=== PATIENT | female | born 1995 | race Caucasian/White ===

== ENCOUNTER → 2020-02-17 | Outpatient (REF) | payer MEDICAID ==
[2020-02-17 15:02] LABS: HEMATOCRIT 37.9 % (36.0-47.0); HEMOGLOBIN 13.3 g/dl (12.0-15.5); MEAN CORPUSCULAR HEMOGLOBIN 32.6 pg (27.0-33.0); MEAN CORPUSCULAR HGB CONC 35.1 g/dl (32.0-36.5); MEAN CORPUSCULAR VOLUME 92.9 fl (80.0-96.0); PLATELET COUNT, AUTOMATED 235 10^3/uL (150-450); RED BLOOD COUNT 4.08 10^6/uL (4.00-5.40); WHITE BLOOD COUNT 8.8 10^3/uL (4.0-10.0)
[2020-02-17 16:10] LABS: HEPATITIS C VIRUS ABY INDEX 0.1 INDEX (<0.8); HIV 1&2 SCREEN CENTAUR NEGATIVE (NEGATIVE)
== END ==
LOC: M PLALAB 12:44
PROVIDERS: ATTEND Advanced Practice Midwife
DX: Z34.01 Encounter for supervision of normal first pregnancy, first trimester (principal)

== ENCOUNTER → 2020-03-30 | Outpatient (CLI) | payer OTHER ==
--- NOTE | 2020-03-30 09:45 | REP ---
INDICATION: ANATOMY COMPARISON: None. TECHNIQUE: Transabdominal obstetrical ultrasound with color Doppler evaluation. FINDINGS: Examination demonstrates a single live intrauterine in cephalic presentation. motion is identified by technologist. Placenta is noted posterior/right lateral and grade 1 without evidence for placenta previa or abruption. Amniotic fluid volume is normal. Cervix measures 3.1 cm in length and appears closed.. Gestational age by LMP 17 weeks 6 days with JAISON 09/01/2020. Gestational age by current measurements 17 weeks 3 days with JAISON 09/04/2020. FHR equals 152 beats per minute. BPD: 3.9 cm seventeen weeks 5 days HC: 14.1 cm 17 weeks 3 days AC: 14.1 cm 16 weeks 6 days FL: 2.5 cm 17 weeks 4 days HL: 2.5 cm 17 weeks 4 days HC/AC: 1.27 Estimated weight 187 grams (14thpercentile). Anatomical assessment demonstrates normal structures including cranium, choroid plexus, cavum, cerebellum/posterior fossa, ventricular outflow tracts, diaphragm, stomach, cord insertion/three-vessel cord, kidneys/bladder, spine, and extremities. IMPRESSION: 1. Single live intrauterine in cephalic presentation demonstrating appropriate estimated weight. 2. Limited evaluation of the nose/lips and four-chamber heart. Follow-up and re-evaluation is recommended. <Electronically signed by Jaziel Braun > 03/30/20 [id number]
== END ==
LOC: M WHC 08:32
PROVIDERS: ATTEND Advanced Practice Midwife
DX: Z34.02 Encounter for supervision of normal first pregnancy, second trimester (principal)

== ENCOUNTER → 2020-05-29 | Outpatient (REF) | payer OTHER ==
[2020-05-29 13:42] LABS: HEMATOCRIT 33.4 % (36.0-47.0); HEMOGLOBIN 11.2 g/dl (12.0-15.5); MEAN CORPUSCULAR HGB CONC 33.5 g/dl (32.0-36.5); MEAN CORPUSCULAR VOLUME 98.5 fl (80.0-96.0); PLATELET COUNT, AUTOMATED 207 10^3/uL (150-450); RED BLOOD COUNT 3.39 10^6/uL (4.00-5.40); WHITE BLOOD COUNT 7.8 10^3/uL (4.0-10.0)
== END ==
LOC: M PLALAB 08:30
PROVIDERS: ATTEND Advanced Practice Midwife
DX: Z34.02 Encounter for supervision of normal first pregnancy, second trimester (principal)

== ENCOUNTER → 2020-06-04 | Outpatient (CLI) | payer OTHER ==
--- NOTE | 2020-06-04 11:17 | REP ---
INDICATION: F/U NOSE/LIPS, 4 CHAMBER HEART COMPARISON: 03/30/2020 TECHNIQUE: Transabdominal obstetrical ultrasound with color Doppler evaluation. FINDINGS: Examination demonstrates a single live intrauterine in cephalic presentation. motion is identified by technologist. Placenta is noted posterior and grade 1 without evidence for placenta previa or abruption. Amniotic fluid volume is normal. Cervix measures 3.1 cm in length and appears closed.. Gestational age by LMP 27 weeks 2 days with JAISON 09/01/2020. Gestational age by current measurements 27 weeks 0 days with JAISON 09/03/2020. FHR equals 156 beats per minute. Estimated weight 1022 grams (29thpercentile). Anatomical assessment demonstrates normal structures including cranium, facial features, nose/lips, stomach, kidneys/bladder and three-vessel cord. Echogenic foci within the heart again noted and may represent prominent chordae tendineae. IMPRESSION: Single live intrauterine in cephalic presentation demonstrating appropriate interval growth. Current examination demonstrates normal appearance to the nose/lips. Intracardiac echogenic foci again noted. <Electronically signed by Jaziel Braun > 06/04/20 [id number]
== END ==
LOC: M WHC 09:36
PROVIDERS: ATTEND Advanced Practice Midwife
DX: O28.3 Abnormal ultrasonic finding on antenatal screening of mother (principal); Z36.2 Encounter for other antenatal screening follow-up; Z3A.27 27 weeks gestation of pregnancy

== ENCOUNTER → 2020-08-04 | Outpatient (REF) | payer OTHER | LOC: M SFHCWAGY 13:29 | PROVIDERS: ATTEND Advanced Practice Midwife | DX: Z36.89 Encounter for other specified antenatal screening (principal); Z3A.36 36 weeks gestation of pregnancy ==

== ENCOUNTER → 2020-09-01 | Outpatient (CLI) | payer OTHER | LOC: M LABSMTC 10:08 | PROVIDERS: ATTEND Specialist | DX: Z11.52 Encounter for screening for COVID-19 (principal) ==

== ENCOUNTER 2020-09-04 11:19 | Outpatient (CLI) | payer OTHER ==
[~2020-09-04] VITALS: Ht 152.4 cm; Wt 59.0 kg
[2020-09-04 11:44] VITALS: BP 130/85
--- NOTE | 2020-09-04 12:15 | IPNPDOC ---
Text Note Date of Service The patient was seen on 09/04/20. NOTE Outpatient 25yo G1 JAISON 09/01/2020 @ 40w3. Presents with complaints of contractions since 0500. Sister in law reports they are irregular, every 2-3 minutes. Denies LOF, bleeding. Reports good movement. Cat I tracing UC mild, 2-5 minutes SVE 1/90/-2, posterior. No show on glove. Scheduled for elective IOL today. Reviewed early labor. Rec having lunch, increase her fluids, tylenol, shower and rest Enc to call with increased discomfort , regularity of UC, bleeding or lOF. Pt and VIJAY verbalize understanding. Will call for IOL later today VS,Fishbone, I+O VS, Fishbone, I+O Vital Signs Date Time Temp Pulse Resp B/P (MAP) Pulse Ox O2 Delivery O2 Flow Rate FiO2 09/04/20 11:44 97.9 70 18 130/85 (100) Milla Palm CNM September 04, 2020 12:15
[2020-09-04] MEDS ORDERED: PROMETHAZINE INJ 25 MG/ML VIAL (J2550) IV ONE (20:50)
[2020-09-04] MEDS ORDERED: BUTORPHANOL 2 MG/ML INJ (J0595) IV ONE (20:50)
[2020-09-07] MEDS ORDERED: PRENCHW PO ×2 (10:40)
== END 2020-09-04 12:18 | disposition home or self-care (01) ==
LOC: M LDO 11:19
PROVIDERS: ATTEND Advanced Practice Midwife
DX: O47.1 False labor at or after 37 completed weeks of gestation (principal); Z3A.40 40 weeks gestation of pregnancy; O48.0 Post-term pregnancy

== ENCOUNTER 2020-09-04 17:23 | Inpatient (IN) | payer OTHER ==
[~2020-09-04] VITALS: Ht 152.4 cm; Wt 59.0 kg
[2020-09-04] MEDS ORDERED: LACTATED RINGER'S 1000 ML IV STA (17:54)
[2020-09-04] MEDS ORDERED: OXYTOCIN DRIP 30 UNITS in IV 1 EA IV PRN (17:55)
[2020-09-04] MEDS ORDERED: METHYLERGONOVINE MALEATE 0.2 MG/ML VIAL (J2210) IM PRN (17:55)
[2020-09-04] MEDS ORDERED: LIDOCAINE 1% MDV 20ML VIAL INFIL PRN (17:55)
--- NOTE | 2020-09-04 18:10 | HPEPDOC ---
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 BREAST: . ABDOMEN: Gravid and non-tender to touch. FETUS: Is vertex (VTX) by sterile vaginal examination (SVE), fetus is vertex (VTX) by Jeffrey. EFW 7# HEART RATE: Regular rate and rhythm. LUNGS: Clear to auscultation (CTA). EXTREMITIES: No edema. No clonus. Deep tendon reflexes (DTRs) + 2. Pertinent Laboratoy Data Blood Type: O+ RBC Antibody Screen: Negative HIV: Negative Hepatitis B: Negative Hepatitis C: Negative Rapid Plasma Reagin: Nonreactive Rubella: Nonreactive Chlamydia/Gonorrhea: Negative Group B Streptococcus: Negative Glucose Tolerance Test: 110 Anatomy Ultrasound Ultrasound Date: Mar 30, 2020 Placenta Location: Posterior Normal Anatomy: Yes Placenta Previa: No Estimated Weight (grams): 187 (14%) Other Ultrasounds 02/17/20dating 11w2d 06/04/2020 f/u anatomy EFW 1022gm 29% Steroid Therapy Steroid Therapy: No Vaginal Examination Dilation: 3 cm (-4) Effacement: 90% Station: -1 Cervical Consistency: Soft Cervical Position: Middle Presentation: Cephalic presentation Assessment Heart Rate (FHR): 145 Variability: Moderate Accelerations: Positive Decelerations: None Tocometer Contractions: Yes Frequency: regular, every 3-7 min. Strength: palpated as mild Assessment/Plan Assessment Stephani is a 25-year-old (G)1 para (P)0-0-0-0 at 40+3 weeks by 11-week ultrasound. Presents to Labor and Delivery (L&D) with complaints of contractions. Denies LOF, bleeding. Reports good movement. Plan Admit and orient. 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 Diet: regular. Group B Streptococcus (GBS) negative Labs and intravenous (IV) per unit protocol. Counseled on Pitocin and induction of labor (IOL). Lactated Ringers (LR): Bolus 500 mL, then saline lock. Plans to labor ad armin Anticipate normal spontaneous delivery (). C-S as appropriate. Milla Palm CNM September 04, 2020 18:10
[2020-09-04 18:22] LABS: HEMATOCRIT 33.7 % (36.0-47.0); HEMOGLOBIN 11.2 g/dl (12.0-15.5); MEAN CORPUSCULAR HEMOGLOBIN 29.6 pg (27.0-33.0); MEAN CORPUSCULAR HGB CONC 33.2 g/dl (32.0-36.5); MEAN CORPUSCULAR VOLUME 88.9 fl (80.0-96.0); PLATELET COUNT, AUTOMATED 164 10^3/uL (150-450); RED BLOOD COUNT 3.79 10^6/uL (4.00-5.40); WHITE BLOOD COUNT 9.2 10^3/uL (4.0-10.0)
[2020-09-04 19:09] VITALS: BP 125/71
[2020-09-04 20:35] VITALS: BP 110/65
[2020-09-04] MEDS ORDERED: BUTORPHANOL 2 MG/ML INJ (J0595) IV ONE (20:55)
[2020-09-04] MEDS ORDERED: PROMETHAZINE INJ 25 MG/ML VIAL (J2550) IV ONE (20:55)
[2020-09-04 21:05] VITALS: BP 114/69
[2020-09-04 22:02] VITALS: BP 108/62
[2020-09-04 22:53] VITALS: BP 108/68
[2020-09-04] MEDS ORDERED: LR 1,000 ML IV SCH (23:10)
[2020-09-04] MEDS ORDERED: OXYTOCIN DRIP 30 UNITS in IV 1 EA IV SCH (23:10)
[2020-09-05] VITALS (17 sets, daily range): BP systolic 102–132; BP diastolic 52–83
[2020-09-05] MEDS ORDERED: BUTORPHANOL 2 MG/ML INJ (J0595) IV ONE (02:30)
[2020-09-05] MEDS ORDERED: IBUPROFEN 800 MG TAB PO PRN (06:20)
[2020-09-05] MEDS ORDERED: MEASLES,MUMPS,RUBELLA VACCINE INJ (MMR-II) (90707) SC SCH (06:20)
[2020-09-05] MEDS ORDERED: ACETAMINOPHEN TAB 650MG DOSE (2X325MG) PO PRN (06:20)
[2020-09-05] MEDS ORDERED: RHOGAM 300 MCG (1500 IU) INJ (J2790) IM SCH (06:20)
[2020-09-05] MEDS ORDERED: ACETAMINOPHEN 500 MG TAB PO PRN (06:20)
[2020-09-05] MEDS ORDERED: DOCUSATE SODIUM 100MG CAPSULE PO PRN (06:20)
[2020-09-05] MEDS ORDERED: METHYLERGONOVINE MALEATE 0.2 MG TAB PO PRN (06:20)
[2020-09-05] MEDS ORDERED: ANUSOL HC CREAM 30GM TOP PRN (06:20)
[2020-09-05] MEDS ORDERED: DIBUCAINE 1% OINTMENT 30GM TOP PRN (06:20)
[2020-09-05] MEDS ORDERED: MOM 30ML SUSPENSION UDC PO PRN (06:20)
--- NOTE | 2020-09-05 06:30 | DNPDOC ---
[facility] Delivery Note Delivery Note DATE OF DELIVERY: 09/05/2020 PREDELIVERY DIAGNOSIS: 40+3/7 weeks' gestation and labor. POST DELIVERY DIAGNOSIS: Delivered. PROCEDURE: Spontaneous vaginal delivery. PROVIDER: Milla Palm CNM ANESTHESIA: None ESTIMATED BLOOD LOSS: 500 mL. FINDINGS: 7 pound 4 ounce, 3280gm male , Score 9/9, no nuchal cord. DELIVERY SUMMARY: Patient is a 25-year-old 1 now para 1-0-0-1 who was admitted to labor and delivery for labor. She received pitocin augmentation of labor, utilizing physiologic coping with stadol and phenergan. Fully dilated 043 6. AROM clear fluid 0437. Viable male child delivered KORY @ 0516. Shoulders delivered with ease. Spontaneous respirations with stimulation. Transitioned on maternal abdomen. Cord doubly clamped and cut by mother under my direction once pulsations ceased. Apgars 9/9. Placenta magdaleno, intact with 3v cord @ 0523. Fundus slow to firm despite massage and IV bolus premixed pitocin solution. Misoprostol 1000mcg [place] placed with excellent control of bleeding. 2nd degree vaginal/perineal laceration and right labial extension infiltrated with lidocaine and reapproximated with 3-0 vicryl rapide. EBL 500ml. Sponge, sharp, instrument count correct. Parents are naming their son Octavio. . Milla Palm CNM September 05, 2020 06:30
[2020-09-05] MEDS: PRENATAL VITAMINS CHEWABLE TABLET PO SCH (07:58)
[2020-09-05] MEDS: IBUPROFEN 600MG TAB PO PRN ×2 (07:59→13:54)
[2020-09-06] MEDS: IBUPROFEN 600MG TAB PO PRN ×3 (03:05→17:03)
[2020-09-06 05:57] VITALS: BP 102/52
--- NOTE | 2020-09-06 08:50 | IPNPDOC ---
Progress Note Date of Service: September 06, 2020 Day#: 1 Progress Note SUBJECT: Doing well without complaints. Ambulating, voiding and pain is well-co ntrolled. Reports minimal lochia. OBJECTIVE: VITAL SIGNS: Within normal limits, afebrile. Alert and oriented times three. Abdomen: Fundus firm at U-2. Soft, NTTP. Ext: neg calf tenderness. ASSESSMENT: day #1 status post . Recovering in stable condition. PLAN: 1. Continue routine care 2. Discharge plans for tomorrow VS, I&O, 24H, Fishbone Vital Signs/I&O Vital Signs Date Time Temp Pulse Resp B/P (MAP) Pulse Ox O2 Delivery O2 Flow Rate FiO2 09/06/20 05:57 98.7 82 16 102/52 (69) 97 Room Air I&O- Last 24 Hours up to 6 AM 09/06/20 06:00 Intake Total 600 ml Output Total 550 ml Balance 50 ml VALERIE REYNA MD. September 06, 2020 08:50
[2020-09-06] MEDS: PRENATAL VITAMINS CHEWABLE TABLET PO SCH (10:02)
[2020-09-06 17:52] VITALS: BP 107/54
[2020-09-07 06:00] VITALS: BP 111/62
[2020-09-07] MEDS: IBUPROFEN 600MG TAB PO PRN (06:15)
[2020-09-07] MEDS: PRENATAL VITAMINS CHEWABLE TABLET PO SCH (08:09)
[2020-09-07] MEDS ORDERED: IBUP80TA PO (10:40)
[2020-09-07] MEDS ORDERED: PRENCHW PO (10:40)
[2020-09-07] MEDS ORDERED: ACET-683 PO (10:40)
== END 2020-09-07 12:40 | disposition home or self-care (01) | DRG 560 ==
LOC: M LDO 17:23 → M LDI 17:56 → M OBS 09-05 09:31
PROVIDERS: ADMIT Advanced Practice Midwife; ATTEND Advanced Practice Midwife
PROC: 10E0XZZ Delivery of Products of Conception, External Approach (ICD-10-PCS; principal; 2020-09-05)
PROC: 0KQM0ZZ Repair Perineum Muscle, Open Approach (ICD-10-PCS; 2020-09-05)
PROC: 10907ZC Drainage of Amniotic Fluid, Therapeutic from Products of Conception, Via Natural or Artificial Opening (ICD-10-PCS; 2020-09-05)
DX: O48.0 Post-term pregnancy (principal); O70.1 Second degree perineal laceration during delivery; Z37.0 Single live birth; Z3A.40 40 weeks gestation of pregnancy

== ENCOUNTER → 2020-12-01 | Outpatient (REF) | payer OTHER ==
[~2020-12-01] MED LIST: ACET-683 PO; IBUP80TA PO; PRENCHW PO
== END ==
LOC: M SFHCWAGY 13:14
PROVIDERS: ATTEND Advanced Practice Midwife
DX: Z12.4 Encounter for screening for malignant neoplasm of cervix (principal); R87.5 Abnormal microbiological findings in specimens from female genital organs

== ENCOUNTER 2021-10-04 11:59 | Emergency (ER) | payer OTHER ==
[~2021-10-04] VITALS: Ht 162.6 cm; Wt 47.0 kg
[2021-10-04] MEDS ORDERED: NS 1,000 ML IV ONE (15:45)
[2021-10-04 17:00] LABS: BASO # 0.1 10^3/uL (0.0-0.2); BASO % 0.6 % (0.0-1.0); EOS # 0.1 10^3/uL (0.0-0.5); EOS % 0.6 % (0.0-3.0); HEMATOCRIT 36.3 % (36.0-47.0); HEMOGLOBIN 12.5 g/dl (12.0-15.5); LYMPH # 1.5 10^3/uL (1.5-5.0); LYMPH % 15.2 % (24.0-44.0); MEAN CORPUSCULAR HEMOGLOBIN 33.2 pg (27.0-33.0); MEAN CORPUSCULAR HGB CONC 34.4 g/dl (32.0-36.5); MEAN CORPUSCULAR VOLUME 96.5 fl (80.0-96.0); MONO # 0.5 10^3/uL (0.0-0.8); NEUTROPHILS # 7.6 10^3/uL (1.5-8.5); NEUTROPHILS % 78.3 % (36.0-66.0); PLATELET COUNT, AUTOMATED 275 10^3/uL (150-450); RED BLOOD COUNT 3.76 10^6/uL (4.00-5.40); WHITE BLOOD COUNT 9.8 10^3/uL (4.0-10.0)
[2021-10-04 17:21] LABS: ALBUMIN 3.7 GM/DL (3.2-5.2); ALT/SGPT 15 U/L (12-78); BILIRUBIN,DIRECT 0.1 MG/DL (0.0-0.2); BILIRUBIN,TOTAL 0.4 MG/DL (0.2-1.0); BLOOD UREA NITROGEN 10 MG/DL (7-18); CALCIUM LEVEL 8.6 MG/DL (8.5-10.1); CARBON DIOXIDE LEVEL 23 MEQ/L (21-32); CHLORIDE LEVEL 109 MEQ/L (98-107); CREATININE FOR GFR 0.73 MG/DL (0.55-1.30); GLOMERULAR FILTRATION RATE > 60.0 (>60); GLUCOSE, FASTING 73 MG/DL (70-100); LIPASE 90 U/L (73-393); POTASSIUM SERUM 4.4 MEQ/L (3.5-5.1); SODIUM LEVEL 138 MEQ/L (136-145); TOTAL PROTEIN 7.2 GM/DL (6.4-8.2)
[2021-10-04 17:29] LABS: GC DNA AMPLIFICATION NEGATIVE (NEGATIVE)
[2021-10-04] MEDS ORDERED: ACETAMINOPHEN 325 MG TAB PO ONE (17:35)
[2021-10-04] MEDS ORDERED: METR-265 PO (19:27)
[2021-10-04] MEDS ORDERED: UNIS25TA3 PO (19:27)
[2021-10-04] MEDS ORDERED: PYRI25TA2 PO (19:27)
[2021-10-04 19:39] VITALS: BP 109/63
== END 2021-10-04 19:43 | disposition home or self-care (01) ==
LOC: M ED 11:59
DX: O26.891 Other specified pregnancy related conditions, first trimester (principal); N76.0 Acute vaginitis; Z3A.08 8 weeks gestation of pregnancy

== ENCOUNTER → 2022-01-12 | Outpatient (CLI) | payer OTHER ==
[~2022-01-12] MED LIST changes: +METR-265 PO; +PYRI25TA2 PO; +UNIS25TA3 PO
[2022-01-12 14:02] LABS: HEMATOCRIT 35.7 % (36.0-47.0); HEMOGLOBIN 12.4 g/dl (12.0-15.5); MEAN CORPUSCULAR HEMOGLOBIN 34.5 pg (27.0-33.0); MEAN CORPUSCULAR HGB CONC 34.7 g/dl (32.0-36.5); MEAN CORPUSCULAR VOLUME 99.4 fl (80.0-96.0); PLATELET COUNT, AUTOMATED 200 10^3/uL (150-450); RED BLOOD COUNT 3.59 10^6/uL (4.00-5.40); WHITE BLOOD COUNT 8.8 10^3/uL (4.0-10.0)
[2022-01-12 15:28] LABS: HEPATITIS C VIRUS ABY INDEX < 0.0 INDEX (<0.8); HIV 1&2 SCREEN CENTAUR NEGATIVE (NEGATIVE)
[2022-01-12 16:41] LABS: GC DNA AMPLIFICATION NEGATIVE (NEGATIVE)
== END ==
LOC: M PLALAB 11:08
PROVIDERS: ATTEND Obstetrics & Gynecology
DX: Z34.82 Encounter for supervision of other normal pregnancy, second trimester (principal); Z3A.00 Weeks of gestation of pregnancy not specified

== ENCOUNTER → 2022-01-17 | Outpatient (CLI) | payer OTHER | LOC: M WHC 13:42 | PROVIDERS: ATTEND Obstetrics & Gynecology | DX: Z34.82 Encounter for supervision of other normal pregnancy, second trimester (principal); Z3A.22 22 weeks gestation of pregnancy ==

== ENCOUNTER → 2022-02-11 | Outpatient (CLI) | payer OTHER ==
[2022-02-11 15:12] LABS: HEMOGLOBIN 12.1 g/dl (12.0-15.5); MEAN CORPUSCULAR HEMOGLOBIN 34.5 pg (27.0-33.0); MEAN CORPUSCULAR HGB CONC 34.6 g/dl (32.0-36.5); MEAN CORPUSCULAR VOLUME 99.7 fl (80.0-96.0); PLATELET COUNT, AUTOMATED 180 10^3/uL (150-450); RED BLOOD COUNT 3.51 10^6/uL (4.00-5.40); WHITE BLOOD COUNT 7.7 10^3/uL (4.0-10.0)
[2022-02-11 16:30] LABS: GC DNA AMPLIFICATION NEGATIVE (NEGATIVE)
== END ==
LOC: M PLALAB 11:31
PROVIDERS: ATTEND Specialist
DX: Z34.82 Encounter for supervision of other normal pregnancy, second trimester (principal)

== ENCOUNTER → 2022-02-11 | Outpatient (CLI) | payer OTHER | LOC: M WHC 10:42 | PROVIDERS: ATTEND Specialist | DX: Z34.82 Encounter for supervision of other normal pregnancy, second trimester (principal) ==

== ENCOUNTER → 2022-04-15 | Outpatient (REF) | payer OTHER | LOC: M SFHCWAGY 17:24 | PROVIDERS: ATTEND Obstetrics & Gynecology | DX: Z34.83 Encounter for supervision of other normal pregnancy, third trimester (principal) ==

== ENCOUNTER 2022-05-02 20:53 | Inpatient (IN) | payer OTHER ==
[~2022-05-02] VITALS: Ht 157.5 cm; Wt 57.2 kg
[2022-05-02] MEDS ORDERED: OXYTOCIN 30UNITS IN 0.9% NaCl 500ML IV BAG As Ordered ONE (21:11)
[2022-05-02 21:18] VITALS: BP 120/85
[2022-05-02 21:34] LABS: HEMATOCRIT 38.8 % (36.0-47.0); HEMOGLOBIN 13.2 g/dl (12.0-15.5); MEAN CORPUSCULAR HEMOGLOBIN 31.8 pg (27.0-33.0); MEAN CORPUSCULAR VOLUME 93.5 fl (80.0-96.0); PLATELET COUNT, AUTOMATED 181 10^3/uL (150-450); RED BLOOD COUNT 4.15 10^6/uL (4.00-5.40); WHITE BLOOD COUNT 10.7 10^3/uL (4.0-10.0)
[2022-05-02 21:36] VITALS: BP 122/74
[2022-05-02] MEDS ORDERED: METHYLERGONOVINE MALEATE 0.2 MG/ML VIAL (J2210) IM PRN (21:45)
[2022-05-02] MEDS ORDERED: TRANEXAMIC ACID INJection 1,000 MG in NS 100 ML IV PRN (21:45)
[2022-05-02] MEDS ORDERED: OXYTOCIN INJ 10UNITS/ML 1ML VIAL IM PRN (21:45)
[2022-05-02] MEDS ORDERED: CARBOPROST TROMETHAMINE 250 MCG/ML AMP IM PRN (21:45)
[2022-05-02] MEDS ORDERED: OXYTOCIN DRIP 30 UNITS in IV 1 EA IV PRN (21:45)
[2022-05-02 21:51] VITALS: BP 130/76
[2022-05-02] MEDS ORDERED: RHOGAM 300MCG (1500IU) INJ IM SCH (22:05)
[2022-05-02] MEDS ORDERED: MOM 30ML SUSPENSION UDC PO PRN (22:05)
[2022-05-02] MEDS ORDERED: ACETAMINOPHEN TAB 650MG DOSE (2X325MG) PO PRN (22:05)
[2022-05-02] MEDS ORDERED: IBUPROFEN 600MG TAB PO PRN (22:05)
[2022-05-02] MEDS ORDERED: ANUSOL HC CREAM 30GM TOP PRN (22:05)
[2022-05-02] MEDS ORDERED: DOCUSATE SODIUM 100MG CAPSULE PO PRN (22:05)
[2022-05-02] MEDS ORDERED: DIBUCAINE 1% OINTMENT 30GM TOP PRN (22:05)
[2022-05-02] MEDS ORDERED: ACETAMINOPHEN 500 MG TAB PO PRN (22:05)
[2022-05-02] MEDS ORDERED: ONDANSETRON 4MG 2ML VIAL IV PRN (22:05)
[2022-05-02 22:06] VITALS: BP 110/63
[2022-05-02] MEDS: IBUPROFEN 800 MG TAB PO PRN (22:10)
[2022-05-02 22:21] VITALS: BP 106/65
[2022-05-02 23:29] VITALS: BP 106/65
[2022-05-03] MEDS: IBUPROFEN 800 MG TAB PO PRN ×2 (02:02→15:24)
[2022-05-03 06:00] VITALS: BP 94/52
[2022-05-03] MEDS: PRENATAL VITAMINS CHEWABLE TABLET PO SCH (09:54)
[2022-05-03 18:00] VITALS: BP 108/66
[2022-05-04 06:00] VITALS: BP 107/60
[2022-05-04] MEDS ORDERED: MEASLES,MUMPS,RUBELLA VACCINE INJ (MMR-II) SC.IMMUN ONE (09:00)
[2022-05-04] MEDS: PRENATAL VITAMINS CHEWABLE TABLET PO SCH (09:13)
== END 2022-05-04 16:35 | disposition home or self-care (01) | DRG 560 ==
LOC: M LDO 20:53 → M LDI 21:03 → M OBS 23:27
PROVIDERS: ADMIT Advanced Practice Midwife; ATTEND Advanced Practice Midwife
PROC: 10E0XZZ Delivery of Products of Conception, External Approach (ICD-10-PCS; principal; 2022-05-02)
DX: O80 Encounter for full-term uncomplicated delivery (principal); Z37.0 Single live birth; Z3A.38 38 weeks gestation of pregnancy